=== PATIENT | female | born 1960 | race Caucasian/White ===

== ENCOUNTER → 2017-11-29 | Outpatient (CLI) | payer MEDICARE ==
[~2017-11-29] MED LIST: AMIT50 PO; AMLO10 PO; ASPI81CH PO; CETI5 PO; CYCL10 PO; DOCU100 PO; DULO60 PO; GABA600 PO; GLIP10 PO; HYDACE10B PO; HYDCHL25 PO; METF500 PO; OMEP40CA12 PO; SIMV10 PO; Senna8.6 M1 PO
== END ==
LOC: LAB SHORT 14:07 → LAB 14:07
DX: R10.9 Unspecified abdominal pain (principal)
CPT/HCPCS: 87086

== ENCOUNTER → 2018-08-06 | Outpatient (CLI) | payer MEDICARE | END | disposition home or self-care (01) | LOC: LAB SHORT 08:02 → PLD 08:02 | DX: D48.5 Neoplasm of uncertain behavior of skin (principal) | CPT/HCPCS: 88305 ==

== ENCOUNTER 2020-01-14 09:41 | Day surgery (SDC) | payer MEDICARE ==
--- NOTE | 2020-01-14 10:41 | NUR ---
Ambulatory in Day Surgery History, Chart, Medications and Allergies reviewed before start of procedure.Lungs clear T/O to Auscultation. Patient confirms NPO status and agrees with scheduled surgery.
--- NOTE | 2020-01-14 10:59 | NUR ---
01/14/20 1059 Krystian Bass PATIENT DETERMINED TO BE ASA APPROPRIATE FOR PROPOFOL SEDATION PRIOR TO START OF PROCEDURE BY DR. José Miguel Bishop Placed3-LEAD EKG REVIEWED WITH PHYSICIAN PRIOR TO START OF PROCEDURE.Patient to ENDO 1History, Chart, Medications and Allergies reviewed before start of procedure.MONITOR INTACT WITH CONTINUOUS PULSE OXIMETRY AND INTERMITTENT BP.O2 VIA N/C INTACT THROUGHOUT SEDATION/PROCEDURE.
--- NOTE | 2020-01-14 11:39 | NUR ---
Patient up to Ambulate independently. Gait steady. Discharge instructions reviewed with patient. Patient verbalizes understanding. Copy given to patient to take home. Discharged via wheelchair to private car for ride home.
== END 2020-01-14 22:49 | disposition home or self-care (01) ==
LOC: ORSCMMR 09:41 → ORD 10:30 → ORSCMMR 10:30
PROVIDERS: Internal Medicine Gastroenterology
PROC: 0DB68ZX Excision of Stomach, Via Natural or Artificial Opening Endoscopic, Diagnostic (ICD-10-PCS; principal; 2020-01-14 10:30)
PROC: 0DB48ZX Excision of Esophagogastric Junction, Via Natural or Artificial Opening Endoscopic, Diagnostic (ICD-10-PCS; principal; 2020-01-14 10:30)
DX: K21.9 Gastro-esophageal reflux disease without esophagitis (principal); K44.9 Diaphragmatic hernia without obstruction or gangrene; E11.9 Type 2 diabetes mellitus without complications; I10 Essential (primary) hypertension; E78.00 Pure hypercholesterolemia, unspecified; Z79.82 Long term (current) use of aspirin; Z79.899 Other long term (current) drug therapy
CPT/HCPCS: 82947; 88305; 88342; J2704; J7120

== ENCOUNTER → 2020-02-03 | Outpatient (CLI) | payer MEDICARE | END | disposition home or self-care (01) | LOC: PLD 15:10 → LAB SHORT 15:10 | DX: D48.5 Neoplasm of uncertain behavior of skin (principal) | CPT/HCPCS: 88305 ==

== ENCOUNTER → 2020-06-08 | Outpatient (CLI) | payer MEDICARE ==
[2020-06-10 14:58] LABS: CORONAVIRUS (COVID19) CSH-NRL Negative (Negative)
== END | disposition home or self-care (01) ==
LOC: LAB 14:48
PROVIDERS: Internal Medicine
DX: Z03.89 Encounter for observation for other suspected diseases and conditions ruled out (principal); Z20.828 Contact with and (suspected) exposure to other viral communicable diseases
CPT/HCPCS: U0003

== ENCOUNTER 2024-10-27 09:14 | Day surgery (SDC) | payer OTHER ==
[~2024-10-27] VITALS: Ht 165.1 cm; Wt 93.3 kg
[~2024-10-27 09:14] MED LIST changes: +Dexamethasone Sod Phos 10 MG/ML 1ML VIAL ONE; +FentaNYL Citrate 50 MCG/ML 2 ML Injection ONE; +Midazolam HCl 1MG / ML 2ML Vial ONE; +NS 1,000 ML IV ONE; +Ondansetron HCl 2 MG / ML 2ML Vial ONE; +propofoL 20 ML IV ONE
[2024-10-27] MEDS ORDERED: CefTRIAXone Sodium 2,000 MG in NS 100 ML IV SCH (09:25)
[2024-10-27] MEDS ORDERED: Lactated Ringer's 1,000 ML IV ONE (09:31)
[2024-10-27] MEDS ORDERED: LOSA25 PO (09:33)
[2024-10-27] MEDS ORDERED: ATOR10 PO (09:35)
[2024-10-27] MEDS ORDERED: PREG150 PO (09:36)
[2024-10-27] MEDS ORDERED: TIZA4 PO (09:36)
[2024-10-27] MEDS ORDERED: TRAZ100 PO (09:36)
[2024-10-27] MEDS ORDERED: OZEMPIC0.25 MG/02 SQ (09:37)
[2024-10-27] MEDS ORDERED: Bupivacaine HCl 0.25% 50 ML Vial ONE (09:52)
[2024-10-27] MEDS ORDERED: EPINEPhrine HCl 1 MG/ML 1ML Amp ONE (10:18)
[2024-10-27] MEDS ORDERED: propofoL 20 ML IV ONE (10:53)
[2024-10-27] MEDS ORDERED: SuccINYLCHOLINE Chloride 100 MG/5 ML 5MLSYR ONE (11:33)
--- NOTE | 2024-10-27 11:40 | NUR ---
10/27/24 1877 Abby Durand PT STATED SHE HAS BEEN HAVING ON GOING SCIATICA PAIN WHEN SHE WAS MOVING HERSELF TO OR BED
[2024-10-27] MEDS ORDERED: Sugammadex Sodium 200 MG/2ML SDV (100 MG/ML) ONE ×2 (11:54→12:14)
--- NOTE | 2024-10-27 12:40 | NUR ---
10/27/24 1240 Jayda Connell PT DEEP BREATHING AND COUGHING. 94% ON ROOM AIR
--- NOTE | 2024-10-27 13:17 | NUR ---
10/27/24 1317 Jayda Connell MOTHER BROUGHT TO BEDSIDE
[2024-10-27 13:24] VITALS: BP 145/92
[2024-10-27] MEDS ORDERED: OxyCODONE 5 mg/Acetamin 325 mg TABLET ONE (13:53)
== END 2024-10-27 14:40 | disposition home or self-care (01) ==
LOC: ORSCSDS 09:14
PROVIDERS: Orthopaedic Surgery
PROC: 0LM14ZZ Reattachment of Right Shoulder Tendon, Percutaneous Endoscopic Approach (ICD-10-PCS; principal; 2024-10-27 10:30)
PROC: 0RNJ4ZZ Release Right Shoulder Joint, Percutaneous Endoscopic Approach (ICD-10-PCS; principal; 2024-10-27 10:30)
DX: M75.121 Complete rotator cuff tear or rupture of right shoulder, not specified as traumatic (principal); M75.41 Impingement syndrome of right shoulder; I10 Essential (primary) hypertension; E78.5 Hyperlipidemia, unspecified; E11.9 Type 2 diabetes mellitus without complications; K21.9 Gastro-esophageal reflux disease without esophagitis; E66.9 Obesity, unspecified; Z68.34 Body mass index [BMI] 34.0-34.9, adult; Z79.84 Long term (current) use of oral hypoglycemic drugs; Z79.899 Other long term (current) drug therapy; Z79.82 Long term (current) use of aspirin
CPT/HCPCS: 82947; A9270; C1713; J0171; J0330; J0696; J1100; J2250; J2405; J2704; J3010; J7030

== ENCOUNTER 2025-04-15 10:07 | Day surgery (SDC) | payer OTHER ==
[~2025-04-15] VITALS: Ht 165.1 cm; Wt 96.6 kg
[~2025-04-15 10:07] MED LIST changes: +ATOR10 PO; +Balanced Salt Epinephrine Irrigation Solution 500 mL IR SCH; -Dexamethasone Sod Phos 10 MG/ML 1ML VIAL ONE; -FentaNYL Citrate 50 MCG/ML 2 ML Injection ONE; +LOSA25 PO; -Midazolam HCl 1MG / ML 2ML Vial ONE; +Moxifloxacin HCL 0.5 MG/0.1 ML 0.4MLSYR RIGHTEYE SCH; -NS 1,000 ML IV ONE; +OZEMPIC0.25 MG/02 SQ; +Ondansetron 4 MG SoluTab MM PRN; -Ondansetron HCl 2 MG / ML 2ML Vial ONE; +PHENYLEPHRINE\\TROPICAMIDE\\TETRACAINE OPHTHALMIC DILATING SOLN RIGHTEYE PRN; +PREG150 PO; +Povidone-Iodine 450 DROP/30 ML Solution ONE; +Povidone-Iodine 450 DROP/30 ML Solution RIGHTEYE SCH; +TIZA4 PO; +TRAZ100 PO; +Tetracaine HCl/Pf 0.5% Opth Soln 4 ml ONE; -propofoL 20 ML IV ONE
[2025-04-15] MEDS ORDERED: VITAMIN D350 MC3 PO (10:20)
[2025-04-15] MEDS ORDERED: MELATONIN5 M1 PO (10:21)
[2025-04-15] MEDS ORDERED: FEROSUL (10:22)
[2025-04-15] MEDS ORDERED: IBUP400 PO (10:41)
[2025-04-15] MEDS ORDERED: FISH OIL 1,0001 EA10 PO (10:42)
--- NOTE | 2025-04-15 11:27 | NUR ---
04/15/25 1127 Jaclyn Parrish 1125 BP:160/75 HR:72 O2:100 RESP:14
[2025-04-15 11:47] VITALS: BP 150/78
[2025-04-15] MEDS ORDERED: PREG150 PO (14:37)
== END 2025-04-15 11:57 | disposition home or self-care (01) ==
LOC: ORSCSDS 10:07
PROVIDERS: Student in an Organized Health Care Education/Training Program
PROC: 08RJ3JZ Replacement of Right Lens with Synthetic Substitute, Percutaneous Approach (ICD-10-PCS; principal; 2025-04-15 11:30)
DX: E11.36 Type 2 diabetes mellitus with diabetic cataract (principal); H25.813 Combined forms of age-related cataract, bilateral; M79.7 Fibromyalgia; I10 Essential (primary) hypertension; Z79.84 Long term (current) use of oral hypoglycemic drugs; Z79.85 Long-term (current) use of injectable non-insulin antidiabetic drugs; Z79.899 Other long term (current) drug therapy
CPT/HCPCS: A9270; V2632

== ENCOUNTER 2025-04-22 10:39 | Day surgery (SDC) | payer OTHER ==
[~2025-04-22] VITALS: Ht 162.6 cm; Wt 97.2 kg
[~2025-04-22 10:39] MED LIST changes: +FEROSUL; +FISH OIL 1,0001 EA10 PO; +IBUP400 PO; +MELATONIN5 M1 PO; +Moxifloxacin HCL 0.5 MG/0.1 ML 0.4MLSYR LEFTEYE SCH; -Moxifloxacin HCL 0.5 MG/0.1 ML 0.4MLSYR RIGHTEYE SCH; +PHENYLEPHRINE\\TROPICAMIDE\\TETRACAINE OPHTHALMIC DILATING SOLN LEFTEYE PRN; -PHENYLEPHRINE\\TROPICAMIDE\\TETRACAINE OPHTHALMIC DILATING SOLN RIGHTEYE PRN; +Povidone-Iodine 450 DROP/30 ML Solution LEFTEYE SCH; -Povidone-Iodine 450 DROP/30 ML Solution RIGHTEYE SCH; +VITAMIN D350 MC3 PO
--- NOTE | 2025-04-22 11:52 | NUR ---
04/22/25 1152 Glenny Smith VITALS AT 1151 BP: 147/69 P: 70 O2: 99% WITH 9 LITERS OF BLOW BY OXYGEN
[2025-04-22 12:09] VITALS: BP 135/67
== END 2025-04-22 12:22 | disposition home or self-care (01) ==
LOC: ORSCSDS 10:39
PROVIDERS: Student in an Organized Health Care Education/Training Program
PROC: 08RK3JZ Replacement of Left Lens with Synthetic Substitute, Percutaneous Approach (ICD-10-PCS; principal; 2025-04-22 12:00)
DX: E11.36 Type 2 diabetes mellitus with diabetic cataract (principal); H25.812 Combined forms of age-related cataract, left eye; Z96.1 Presence of intraocular lens; I10 Essential (primary) hypertension; M79.7 Fibromyalgia; Z79.84 Long term (current) use of oral hypoglycemic drugs; Z79.85 Long-term (current) use of injectable non-insulin antidiabetic drugs; Z79.899 Other long term (current) drug therapy
CPT/HCPCS: A9270; V2632

== ENCOUNTER → 2025-05-04 | Outpatient (CLI) | payer OTHER ==
[~2025-05-04] MED LIST changes: -Balanced Salt Epinephrine Irrigation Solution 500 mL IR SCH; -Moxifloxacin HCL 0.5 MG/0.1 ML 0.4MLSYR LEFTEYE SCH; -Ondansetron 4 MG SoluTab MM PRN; -PHENYLEPHRINE\\TROPICAMIDE\\TETRACAINE OPHTHALMIC DILATING SOLN LEFTEYE PRN; -Povidone-Iodine 450 DROP/30 ML Solution LEFTEYE SCH; -Povidone-Iodine 450 DROP/30 ML Solution ONE; -Tetracaine HCl/Pf 0.5% Opth Soln 4 ml ONE
[2025-05-05 10:18] LABS: Bacterial Vaginosis PCR Negative (NEGATIVE); Candida Group, PCR NOT DETECTED (NOT DETECT)
[2025-05-05 12:12] LABS: Candida glabrata-krusei, PCR DETECTED (NOT DETECT)
== END | disposition home or self-care (01) ==
LOC: LAB SHORT 19:21 → LAB 19:21
PROVIDERS: Family Medicine
DX: N89.8 Other specified noninflammatory disorders of vagina (principal)
CPT/HCPCS: 81515